=== PATIENT | female | born 1970 | race Caucasian/White ===

== ENCOUNTER → 2021-08-26 | Outpatient (CLI) | payer OTHER ==
[~2021-08-26] MED LIST: CONEST.625 PO; LEVSOD50 PO; NAPR500 PO; TRAM50 PO
== END | disposition home or self-care (01) ==
LOC: PLD 14:49 → LAB SHORT 14:49
DX: C44.319 Basal cell carcinoma of skin of other parts of face (principal)
CPT/HCPCS: 88305

== ENCOUNTER → 2022-04-17 | Outpatient (CLI) | payer OTHER ==
[2022-04-21 06:10] LABS: DOPAMINE, URINE 39 ug/L (Undefined)
[2022-04-21 07:10] LABS: METANEPHRINE, UR 17 ug/L (Undefined)
== END | disposition home or self-care (01) ==
LOC: LAB 10:25 → LAB SHORT 10:25
PROVIDERS: Internal Medicine
DX: I10 Essential (primary) hypertension (principal)
CPT/HCPCS: 81050; 82384; 83835

== ENCOUNTER 2022-05-27 12:34 | Day surgery (SDC) | payer OTHER ==
[~2022-05-27] VITALS: Ht 170.2 cm; Wt 83.8 kg
[2022-05-27] MEDS ORDERED: KAPSPARGO SPRIN25 MG (12:51)
[2022-05-27] MEDS ORDERED: Norco 10-325 T1 EACH (12:52)
[2022-05-27] MEDS ORDERED: IBUP800 (12:52)
[2022-05-27] MEDS ORDERED: Vitamin B-12100 MCG (12:53)
[2022-05-27] MEDS ORDERED: Cyclobenzaprine5 MG (12:53)
[2022-05-27] MEDS ORDERED: MULVITA (12:53)
[2022-05-27] MEDS ORDERED: DRIZALMA SPRINK20 MG (12:53)
[2022-05-27] MEDS ORDERED: GABA100 (12:53)
[2022-05-27] MEDS ORDERED: MAGCIT300 (12:54)
[2022-05-27] MEDS ORDERED: VITAMIN D310 MC4 (12:54)
== END 2022-05-27 15:05 | disposition home or self-care (01) ==
LOC: ORSCSDS 12:34
PROVIDERS: Internal Medicine Gastroenterology
PROC: 0DBN8ZX Excision of Sigmoid Colon, Via Natural or Artificial Opening Endoscopic, Diagnostic (ICD-10-PCS; principal; 2022-05-27 13:45)
DX: Z12.11 Encounter for screening for malignant neoplasm of colon (principal); D12.5 Benign neoplasm of sigmoid colon; R13.12 Dysphagia, oropharyngeal phase; K57.30 Diverticulosis of large intestine without perforation or abscess without bleeding; Z86.010 Personal history of colon polyps; Z87.891 Personal history of nicotine dependence; Z79.899 Other long term (current) drug therapy
CPT/HCPCS: J2704; J7120